=== PATIENT | female | born 1955 | race Caucasian/White ===

== ENCOUNTER 2016-08-09 11:35 | Emergency (ER) | payer OTHER ==
[2016-08-09 11:47] VITALS: BP 116/76; PULSE 87; TEMP 98; BMI 28.3
[2016-08-09] MEDS ORDERED: ALBUTEROL SO4 2.5/IPRATROPIUM 0.5 INH SOL 3 ML VIAL.NEB. NEB ONE ×4 (12:02→13:02)
--- NOTE | 2016-08-09 12:08 | PDOC ---
History of Present Illness - General Chief Complaint: Asthma Stated Complaint: SOB (ASTHMA) Time Seen by Provider: 08/09/16 11:54 History Source: Patient Exam Limitations: No Limitations - History of Present Illness Initial Comments: 08/09/16 12:03 61 yr female with cough and ear pain for one week. Pt has cough and wheezing for 2 days. Pt denies fever or chest pain. pt has SOB at night trying to sleep. Pt speaking clear sentences no history of intubations. Possible Cause: Yes: occasional episodes Past History - Travel Traveled outside of the country in the last 30 days: No Close contact w/someone who was outside of country & ill: No - Past Medical History Allergies/Adverse Reactions: Allergies Allergy/AdvReac Type Severity Reaction Status Date / Time No Known Allergies Allergy Verified 08/09/16 11:42 Home Medications: Ambulatory Orders Albuterol Sulfate [Proair Respiclick] 90 mcg IH ASDIR 02/13/16 Budesonide/Formeterol Fumarate [SYMBICORT 160/4.5mcg -] 1 inh IH ASDIR 02/13/16 Famotidine [Pepcid -] 40 mg PO DAILY #30 tablet 02/13/16 Gemfibrozil 600 mg PO BID 02/13/16 Montelukast Na [Singulair -] 10 mg PO HS 02/13/16 Multivitamins [Tab-A-Vit -] 1 tab PO DAILY 02/13/16 Albuterol 0.083% Nebulizer Maryellne [Ventolin 0.083% Nebulizer Soln -] 1 neb NEB Q4H PRN #60 vial 08/09/16 Azithromycin [Zithromax 250mg Tablets -] 250 mg PO UTDICT #6 tab 08/09/16 Prednisone [Deltasone -] 40 mg PO DAILY #10 tablet 08/09/16 Asthma: Yes Diabetes: Yes Hypercholesterolemia: Yes Liver Disease: Yes (?) - Psycho/Social/Smoking Cessation Hx Anxiety: No Suicidal Ideation: No Smoking Status: No Smoking History: Never smoked Number of Cigarettes Smoked Daily: 2 Information on smoking cessation initiated: Yes Hx Alcohol Use: No Drug/Substance Use Hx: No Substance Use Type: None Respiratory Specific PMHX - Complaint Specific PMHX Angina: No Bronchitis: Yes Pneumonia: Yes Pulmonary Embolus: No TB (Tuberculosis): No Review of Systems - Review of Systems Able to Perform ROS?: Yes Is the patient limited Citizen [place] proficient: No Constitutional: No: Symptoms Reported HEENTM: Yes: Eye Pain Respiratory: Yes: Cough, Shortness of Breath, Wheezing, Productive cough *Physical Exam - Vital Signs Last Vital Signs Temp Pulse Resp BP Pulse Ox 98.0 F 87 24 116/76 98 08/09/16 11:42 08/09/16 11:42 08/09/16 11:42 08/09/16 11:42 08/09/16 11:42 - Physical Exam General Appearance: Yes: Nourished, Appropriately Dressed HEENT: positive: EOMI, BROOKE, Normal ENT Inspection, TMs Normal, Pharynx Normal Neck: positive: Supple. negative: Tender Respiratory/Chest: positive: Lungs Clear, Normal Breath Sounds, Wheezing (mild exp ) Cardiovascular: positive: Regular Rhythm, Regular Rate Gastrointestinal/Abdominal: positive: Normal Bowel Sounds, Soft. negative: Tender Musculoskeletal: positive: Normal Inspection Extremity: positive: Normal Capillary Refill, Normal Inspection, Normal Range of Motion Integumentary: positive: Normal Color, Dry, Warm Neurologic: positive: Fully Oriented, Alert, Normal Mood/Affect, Normal Response , Motor Strength 5/5 Progress Note - Progress Note Progress Note: pt feels better after nebulizers no wheezing on discharge will dc home with strict follow up inst. pt given verbal dc inst all questions asked and answered. Medical Decision Making - Medical Decision Making 08/09/16 12:07 cc: cough, wheezing, nasal congestion ear pain non toxic speaking full sentences no acute distress will give duoneb *DC/Admit/Observation/Transfer Diagnosis at time of Disposition: Asthmatic bronchitis Qualifiers: Asthma severity: mild intermittent Asthma complication type: with acute exacerbation Qualified Code(s): J45.21 - Mild intermittent asthma with (acute) exacerbation - Discharge Dispostion Disposition: HOME Condition at time of disposition: Improved - Prescriptions Prescriptions: Prednisone [Deltasone -] 40 mg PO DAILY #10 tablet Albuterol 0.083% Nebulizer Maryellen [Ventolin 0.083% Nebulizer Soln -] 1 neb NEB Q4H PRN #60 vial PRN Reason: Asthma Azithromycin [Zithromax 250mg Tablets -] 250 mg PO UTDICT #6 tab - Referrals Referrals: Bonnie Rodríguez MD [Primary Care Provider] -
[2016-08-09] MEDS ORDERED: predniSONE 20 MG TABLET (UD) PO ONE (12:11)
[2016-08-09] MEDS ORDERED: predniSONE 20 MG TABLET (UD) ONE (12:24)
== END 2016-08-09 13:18 | disposition home or self-care (01) ==
LOC: JER 11:35 → JERFT 11:35
PROC: 3E0F7GC Introduction of Other Therapeutic Substance into Respiratory Tract, Via Natural or Artificial Opening (ICD-10-PCS; principal; 2016-08-09)
PROC: 3E0F7GC Introduction of Other Therapeutic Substance into Respiratory Tract, Via Natural or Artificial Opening (ICD-10-PCS; 2016-08-09)
DX: J45.21 Mild intermittent asthma with (acute) exacerbation (principal); E11.9 Type 2 diabetes mellitus without complications; E78.00 Pure hypercholesterolemia, unspecified
CPT/HCPCS: 94640; 99281-25

== ENCOUNTER 2018-04-24 10:29 | Emergency (ER) | payer OTHER ==
[2018-04-24 10:52] VITALS: BMI 27.3
--- NOTE | 2018-04-24 11:25 | PDOC ---
History of Present Illness - History of Present Illness Initial Comments: 04/24/18 11:17 63 year old with history of HTN, asthma and DM who presents with 8/10 R sided abdominal pain slightly radiating to the low back. The pain woke her up from sleep this AM. She notes that she has had diarrhea since yesterday. She reports that this pain worsens at night, is intermittent and denies any association of the pain to eating. She states the pain occurred last week and went away on its own. She denies taking anything for pain. She denies fever, recent travel, recent illness. Denies any prior abdominal surgeries. <Luli Ariza - Last Filed: 04/24/18 15:25> <Morris Resendiz - Last Filed: 04/24/18 16:45> - General Chief Complaint: Pain Stated Complaint: ABDOMINAL PAIN/ RUQ Time Seen by Provider: 04/24/18 11:06 Past History - Past Medical History Asthma: Yes COPD: No Diabetes: Yes Hypercholesterolemia: Yes Liver Disease: Yes (?) - Suicide/Smoking/Psychosocial Hx Smoking Status: No Smoking History: Never smoked Number of Cigarettes Smoked Daily: 2 Information on smoking cessation initiated: No Hx Alcohol Use: No Drug/Substance Use Hx: No Substance Use Type: None <Luli Ariza - Last Filed: 04/24/18 15:25> <Morris Resendiz - Last Filed: 04/24/18 16:45> - Past Medical History Allergies/Adverse Reactions: Allergies Allergy/AdvReac Type Severity Reaction Status Date / Time No Known Allergies Allergy Verified 04/24/18 10:46 Home Medications: Ambulatory Orders Albuterol Sulfate [Proair Respiclick] 90 mcg IH PRN PRN 02/13/16 Budesonide/Formeterol Fumarate [SYMBICORT 160/4.5mcg -] 1 inh PO BID 08/22/17 *Physical Exam - Vital Signs Last Vital Signs Temp Pulse Resp BP Pulse Ox 98.6 F 81 18 126/77 100 04/24/18 10:48 04/24/18 10:48 04/24/18 10:48 04/24/18 10:48 04/24/18 10:48 - Physical Exam Comments: 04/24/18 11:49 + RUQ tenderness to palpation, no rebound or guarding, negative Perera's sign No CVA tenderness <Luil Ariza - Last Filed: 04/24/18 15:25> - Vital Signs Last Vital Signs Temp Pulse Resp BP Pulse Ox 98.5 F 74 20 117/75 99 04/24/18 16:25 04/24/18 16:25 04/24/18 16:25 04/24/18 16:25 04/24/18 16:25 <Morris Resendiz - Last Filed: 04/24/18 16:45> ED Treatment Course - LABORATORY CBC & Chemistry Diagram: 04/24/18 11:21 04/24/18 11:35 <Luli Ariza - Last Filed: 04/24/18 15:25> - LABORATORY CBC & Chemistry Diagram: 04/24/18 11:21 04/24/18 11:35 - ADDITIONAL ORDERS Additional order review: Laboratory Results 04/24/18 04/24/18 11:35 11:31 Sodium 141 Potassium 4.2 Chloride 104 Carbon Dioxide 27 Anion Gap 9 BUN 17 Creatinine 0.5 L Creat Clearance w eGFR > 60 Random Glucose 85 Calcium 9.4 Total Bilirubin 0.4 AST 17 ALT 25 Alkaline Phosphatase 70 Total Protein 7.6 Albumin 4.7 Lipase 104 Urine Color Colorless Urine Appearance Clear Urine pH 7.0 Ur Specific [place] 1.002 L Urine Protein Negative Urine Glucose (UA) Negative Urine Ketones Negative Urine Blood Negative Urine Nitrite Negative Urine Bilirubin Negative Urine Urobilinogen Negative Ur Leukocyte Esterase Negative 04/24/18 11:21 RBC 4.77 MCV 85.8 MCHC 33.5 RDW 13.1 MPV 8.8 D Neutrophils % 65.6 Lymphocytes % 28.2 Monocytes % 4.8 Eosinophils % 1.1 Basophils % 0.3 - RADIOLOGY Radiology Studies Ordered: Category Date Time Status ABDOMEN US -LIMITED [US] Stat Ultrasound 04/24/18 13:06 Completed - Medications Given in the ED: ED Medications Discontinued Medications Generic Name Dose Route Start Last Admin Trade Name Freq PRN Reason Stop Dose Admin Ketorolac Tromethamine 30 mg 04/24/18 11:45 04/24/18 11:50 Toradol Injection - IVPUSH 04/24/18 11:46 30 mg ONCE ONE Administration <Morris Resendiz - Last Filed: 04/24/18 16:45> Medical Decision Making - Medical Decision Making 04/24/18 11:26 63 year old with history of HTN, asthma and DM who presents with 8/10 R sided abdominal pain slightly radiating to the low back. The pain woke her up from sleep this AM. She notes that she has had diarrhea since yesterday. She reports that this pain worsens at night, is intermittent and denies any association of the pain to eating. She states the pain occurred last week and went away on its own. She denies taking anything for pain. She denies fever, recent travel, recent illness. Denies any prior abdominal surgeries. DDX including but not limited to: cholelithiasis vs nephrolithiasis vs UTI vs pyelonephritis vs gastroenteritis W/U: - cbc, cmp, lipase - ua, ucx - Abd US TX: - 1L NS - Toradol ED Course: Patient reports feeling hungry at bedside. 04/24/18 15:09 Patient reassessed. Reports feeling hungry. RUQ tenderness to palpation. Improved from initial assessment. 04/24/18 15:18 CBC, CMP, UA: unremarkable. 04/24/18 15:25 <Luli Ariza - Last Filed: 04/24/18 15:25> *DC/Admit/Observation/Transfer <Luli Ariza - Last Filed: 04/24/18 15:25> - Discharge Dispostion Decision to Admit order: No <Morris Resendiz - Last Filed: 04/24/18 16:45> Diagnosis at time of Disposition: Abdominal pain Qualifiers: Abdominal location: right upper quadrant Qualified Code(s): R10.11 - Right upper quadrant pain - Discharge Dispostion Disposition: HOME Condition at time of disposition: Improved - Referrals Referrals: Bonnie Rodríguez MD [Primary Care Provider] - - Patient Instructions Printed Discharge Instructions: DI for Abdominal Pain-Adult Additional Instructions: Return to the emergency department immediately with ANY new, persistent or worsening symptoms including worsening abdominal pain, fevers, inability to tolerate oral intake, chest pain, shortness of breath or any other concerns. Stay well hydrated. You MUST call and follow up with your doctor in 3-4 days. Your emergency department visit is not complete without a followup with your doctor for reevaluation. Please make sure your doctor reviews the results of your emergency evaluation. - Post Discharge Activity
[2018-04-24] MEDS ORDERED: SODIUM CHLORIDE 1,000 ML IV SCH (11:30)
--- NOTE | 2018-04-24 11:43 | PDOC ---
Attending Attestation - Resident Resident Name: ToLuli - ED Attending Attestation I have performed the following: I have examined & evaluated the patient, The case was reviewed & discussed with the resident, I agree w/resident's findings & plan, Exceptions are as noted - HPI HPI: 04/24/18 11:41 63y F htn, asthma, dm, presents with 8/10 R sieded abdo pain. had similar pain last week that resolved. She notes that the pain is intermittent in the right upper quadrant usually worse at night resolves with ibuprofen Denies any fever, chills, nausea, vomiting, does endorse some mild diarrhea, denies associated chest pain, shortness of breath, back pain, dysuria, hematuria. GENERAL: The patient is awake, alert, and fully oriented, Nontoxic - in no acute distress. HEAD: Normocephalic, atraumatic. EYES: extraocular movements intact, sclera anicteric, conjunctiva clear. ENT: Normal voice, Moist mucous membranes. NECK: Normal range of motion, supple LUNGS: Breath sounds equal, clear to auscultation bilaterally. No wheezes, no rhonchi, no rales. HEART: Regular rate and rhythm, normal S1 and S2 without murmur, rub or gallop. ABDOMEN: Soft, nontender, No guarding, no rebound. No CVA tenderness EXTREMITIES: Normal range of motion, no edema. NEUROLOGICAL: No facial assymetry, Normal speech, PSYCH: Normal mood, normal affect. SKIN: Warm, Dry, normal turgor, Differential for the patient's symptoms includes gallstones, kidney stones, gastritis The patient was given Toradol, blood work was obtained - Physicial Exam PE: 04/24/18 16:45 see above - Medical Decision Making 04/24/18 13:08 Labs unremarkable, ua no hematuria will obtain RUQ US pt currently asymptmotic 04/24/18 16:45 The patient is currently asymptomatic, abdomen was reassessed it is soft nontender the patient's ultrasound was unremarkable beside a fatty liver. I will discharge patient to follow up with PMD return precautions were discussed I discussed the physical exam findings, ancillary test results and final diagnoses with the patient. I answered all of the patient's questions. The patient was satisfied with the care received and felt comfortable with the discharge plan and treatment plan. The patient will call their primary care physician within 24 hours to arrange follow-up and will return to the Emergency Department with any new, persistent or worsening symptoms.
[2018-04-24] MEDS ORDERED: KETOROLAC TROMETHAMINE 30 MG/1 ML VIAL IVPUSH ONE (11:45)
[2018-04-24] MEDS ORDERED: KETOROLAC TROMETHAMINE 30 MG/1 ML VIAL ONE (11:50)
[2018-04-24 11:52] LABS: URINE APPEARANCE CLEAR; URINE BILIRUBIN NEGATIVE (<2.0 mg/dL); URINE COLOR COLORLESS; URINE GLUCOSE (UA) NEGATIVE (NEGATIVE); URINE KETONE NEGATIVE (NEGATIVE); URINE LEUK ESTERASE NEGATIVE (NEGATIVE); URINE NITRITE NEGATIVE (NEGATIVE); URINE PROTEIN NEGATIVE (NEGATIVE); URINE UROBILINOGEN NEGATIVE mg/dL (0.2-1.0)
[2018-04-24 12:29] LABS: BASO % 0.3 % (0-2.0); EOS % 1.1 % (0-4.5); HEMATOCRIT 40.9 % (32.4-45.2); HEMOGLOBIN 13.7 GM/dL (10.7-15.3); LYMPH % 28.2 % (8-40); MCH 28.7 pg (25.7-33.7); MCHC 33.5 g/dl (32.0-36.0); MEAN CELL VOLUME 85.8 fl (80-96); MEAN PLT VOLUME 8.8 fl (7.5-11.1); MONO % 4.8 % (3.8-10.2); NEUT % 65.6 % (42.8-82.8); PLATELET COUNT 308 K/MM3 (134-434); RBC 4.77 M/mm3 (3.60-5.2); RDW 13.1 % (11.6-15.6); WHITE BLOOD COUNT 10.2 K/mm3 (4.0-10.0)
[2018-04-24 12:29] LABS: ALBUMIN 4.7 g/dl (3.4-5.0); ALK PHOS 70 U/L (45-117); ANION GAP 9 MMOL/L (8-16); BILIRUBIN,TOTAL 0.4 mg/dL (0.2-1); BLOOD UREA NITROGEN 17 mg/dL (7-18); CALCIUM 9.4 mg/dL (8.5-10.1); CHLORIDE 104 mmol/L (98-107); CO2 27 mmol/L (21-32); CREATININE 0.5 mg/dL (0.55-1.3); GLUCOSE,RANDOM 85 mg/dL (74-106); LIPASE 104 U/L (73-393); POTASSIUM 4.2 mmol/L (3.5-5.1); SGOT/AST 17 U/L (15-37); SGPT/ALT 25 U/L (13-61); SODIUM 141 mmol/L (136-145); TOT PROT 7.6 g/dl (6.4-8.2)
--- NOTE | 2018-04-24 14:51 | EKG ---
Test Reason : Blood Pressure : / mmHG Vent. Rate : 071 BPM Atrial Rate : 071 BPM P-R Int : 154 ms QRS Dur : 084 ms QT Int : 432 ms P-R-T Axes : 033 014 053 degrees QTc Int : 469 ms NORMAL SINUS RHYTHM NORMAL ECG WHEN COMPARED WITH ECG OF 13-FEB-2016 15:21, NO SIGNIFICANT CHANGE WAS FOUND Confirmed by MD Guzman Edward ([id number]) on 04/24/2018 2:50:39 PM Referred By: Confirmed By:Clifford Guzman MD
[2018-04-24 16:29] VITALS: BP 117/75; PULSE 74; TEMP 98.5
== END 2018-04-24 17:06 | disposition home or self-care (01) ==
LOC: JER 10:29
PROC: 3E0333Z Introduction of Anti-inflammatory into Peripheral Vein, Percutaneous Approach (ICD-10-PCS; principal; 2018-04-24)
DX: R10.11 Right upper quadrant pain (principal)
CPT/HCPCS: 36415; 76705-TC; 80053; 81003; 83690; 85025; 87086; 93005; 93010; 96374; 99285-25; J7030

== ENCOUNTER 2018-08-04 11:20 | Emergency (ER) | payer OTHER ==
[2018-08-04 11:45] VITALS: BP 112/86; PULSE 72; TEMP 98.4; BMI 25.3
[2018-08-04] MEDS ORDERED: ALBUTEROL SO4 2.5/IPRATROPIUM 0.5 INH SOL 3 ML VIAL.NEB. NEB ONE ×2 (12:49→12:54)
[2018-08-04] MEDS ORDERED: methylPREDNISolone NA SUCC 125 MG/2 ML VIAL IM ONE (12:50)
[2018-08-04] MEDS ORDERED: methylPREDNISolone NA SUCC 125 MG/2 ML VIAL ONE (13:05)
--- NOTE | 2018-08-04 13:11 | PDOC ---
History of Present Illness - General Chief Complaint: Asthma Stated Complaint: ASTHMA Time Seen by Provider: 08/04/18 12:40 History Source: Patient Exam Limitations: Clinical Condition - History of Present Illness Initial Comments: 08/04/18 13:06 Patient with h/o Asthma present with complaint of 1 week h/o persistent dry cough, nasal congestion, runny nose and intermittent wheezing. Patient report she keeps using home asthma medications but keep getting asthma exacerbations. Patient report tactile fever yesterday but no fever today. Denies any other symptoms. Timing/Duration: other (2 days) Past History - Past Medical History Allergies/Adverse Reactions: Allergies Allergy/AdvReac Type Severity Reaction Status Date / Time No Known Allergies Allergy Verified 08/04/18 11:43 Home Medications: Ambulatory Orders Albuterol Sulfate [Proair Respiclick] 90 mcg IH PRN PRN 02/13/16 Budesonide/Formeterol Fumarate [SYMBICORT 160/4.5mcg -] 1 inh PO BID 08/22/17 Ipratropium [place] 2 spray NS BID PRN #1 spray 08/04/18 Loratadine 10 mg PO DAILY #10 capsule 08/04/18 Methylprednisolone [Medrol Dose Jose] 4 mg PO ASDIR #21 tablet 08/04/18 Asthma: Yes COPD: No Diabetes: Yes Hypercholesterolemia: Yes Liver Disease: Yes (?) - Suicide/Smoking/Psychosocial Hx Smoking Status: No Smoking History: Never smoked Number of Cigarettes Smoked Daily: 2 Hx Alcohol Use: No Drug/Substance Use Hx: No Substance Use Type: None Review of Systems - Review of Systems Able to Perform ROS?: Yes Is the patient limited [place] proficient: No Constitutional: Yes: Chills, Malaise HEENTM: Yes: Symptoms Reported, Nose Congestion. No: See HPI, Eye Pain, Blurred Vision, Tearing, Recent change in vision, Double Vision, Cataracts, Ear Pain, Ocular Prothesis, Ear Discharge, Nose Pain, Tinnitus, Nose Bleeding, Hearing Loss, Throat Pain, Throat Swelling, Mouth Pain, Dental Problems, Difficulty Swallowing, Mouth Swelling, Other Respiratory: Yes: Symptoms reported, See HPI, Cough, Wheezing (intermittent). No: Orthopnea, Shortness of Breath, SOB with Exertion, SOB at Rest, Stridor, Productive cough, Hemoptysis, Other Cardiac (ROS): No: Symptoms Reported, See HPI, Chest Pain, Edema, Irregular Heart Rate, Lightheadedness, Palpitations, Syncope, Chest Tightness, Other ABD/GI: No: Constipated, Diarrhea, Nausea, Vomiting, Abdominal cramping All Other Systems: Reviewed and Negative *Physical Exam - Vital Signs Last Vital Signs Temp Pulse Resp BP Pulse Ox 98.4 F 72 20 112/86 98 08/04/18 11:43 08/04/18 11:43 08/04/18 11:43 08/04/18 11:43 08/04/18 11:43 - Physical Exam Comments: 08/04/18 14:14 GENERAL: Well developed, well nourished. Awake and alert. No acute distress. HEENT: Normocephalic, atraumatic. PERRLA, EOMI. No conjunctival pallor. Sclera are non-icteric. Moist mucous membranes. Oropharynx is clear. NECK: Supple. Full ROM. CARDIOVASCULAR: Regular rate and rhythm. No murmurs, rubs, or gallops. Distal pulses are 2+ and symmetric. PULMONARY: Mild diffuse wheezing.No evidence of respiratory distress. No rales or rhonchi. ABDOMINAL: Soft. Non-tender. Non-distended. No rebound or guarding. No organomegaly. Normoactive bowel sounds. MUSCULOSKELETAL Normal range of motion at all joints. EXTREMITIES: No cyanosis. No clubbing. SKIN: Warm and dry. Normal capillary refill. No rashes. No jaundice. NEUROLOGICAL: Alert, awake, appropriate. Gait is normal without ataxia. PSYCHIATRIC: Cooperative. Good eye contact. Appropriate mood General Appearance: Yes: Nourished, Appropriately Dressed. No: Apparent Distress Moderate Sedation - Procedure Monitoring Vital Signs: Procedure Monitoring Vital Signs Temperature 98.4 F 08/04/18 11:43 Pulse Rate 72 08/04/18 11:43 Respiratory Rate 20 08/04/18 11:43 Blood Pressure 112/86 08/04/18 11:43 O2 Sat by Pulse Oximetry (%) 98 08/04/18 11:43 ED Treatment Course - RADIOLOGY Radiology Studies Ordered: Category Date Time Status CHEST PA & LAT [RAD] Stat Radiology 08/04/18 12:49 Ordered Medical Decision Making - Medical Decision Making 08/04/18 14:12 Patient with h/o Asthma present with complaint of 1 week h/o persistent dry cough, nasal congestion, runny nose and intermittent wheezing. Patient report she keeps using home asthma medications but keep getting asthma exacerbations. Clinical exam unremarkable except some mild diffuse wheezing, no rhonchi or rales. Patient in no respiratory distress. CXR shows no acute infiltrate. rapid strep negative. Patient stable for outpatient treatment for URI with asthma exacerbations and follow-up with PCP *DC/Admit/Observation/Transfer Diagnosis at time of Disposition: URI (upper respiratory infection) Qualifiers: URI type: unspecified URI Qualified Code(s): J06.9 - Acute upper respiratory infection, unspecified Asthma Qualifiers: Asthma severity: mild Asthma persistence: intermittent Asthma complication type : with acute exacerbation Qualified Code(s): J45.21 - Mild intermittent asthma with (acute) exacerbation - Discharge Dispostion Disposition: HOME Condition at time of disposition: Stable Decision to Admit order: No - Prescriptions Prescriptions: Ipratropium [place] 2 spray NS BID PRN #1 spray PRN Reason: nasal congestion Loratadine 10 mg PO DAILY #10 capsule Methylprednisolone [Medrol Dose Jose] 4 mg PO ASDIR #21 tablet - Referrals Referrals: Bonnie Rodríguez MD [Primary Care Provider] - - Patient Instructions Printed Discharge Instructions: Asthma -- Adult Additional Instructions: Chest x-ray shows no pneumonia. Take medications as prescribed. increase fluid intake. follow-up with PCP - Post Discharge Activity
== END 2018-08-04 14:04 | disposition home or self-care (01) ==
LOC: JERFT 11:20
PROC: 3E0F7GC Introduction of Other Therapeutic Substance into Respiratory Tract, Via Natural or Artificial Opening (ICD-10-PCS; principal; 2018-08-04)
PROC: 3E0233Z Introduction of Anti-inflammatory into Muscle, Percutaneous Approach (ICD-10-PCS; 2018-08-04)
DX: J45.21 Mild intermittent asthma with (acute) exacerbation (principal)
CPT/HCPCS: 71046-TC-FY; 87070; 87880; 94640; 96372; 99281-25

== ENCOUNTER 2019-06-09 09:17 | Emergency (ER) | payer OTHER ==
[2019-06-09 09:24] VITALS: TEMP 98.5; BMI 25.3
[2019-06-09] MEDS ORDERED: ACETAMINOPHEN 1000 MG/100 ML VIAL (NON FORMULARY) IVPB ONE (09:37)
--- NOTE | 2019-06-09 09:38 | PDOC ---
Attending Attestation - Resident Resident Name: Deon Link - HPI HPI: 06/09/19 10:36 pt presents to the ED complaining of the acute onset of facial pain and tooth swelling yesterday. History of poor dentition, does not visit dentist because she has a "phobia". states that pain began yesterday, but facial swelling started his AM. Denies fever, nausea or vomiting, other complaints. - Physicial Exam PE: 06/09/19 10:38 Agree with resident exam. Patient is alert and oriented and in no acute distress. + mild R sided facial swelling. + redness, no warmth or tenderness. + exquisite tenderness at the site of tooth number 12--tooth is missing, but root is still in place. No trismus. - Medical Decision Making 06/09/19 10:41 pt presents to the ED complaining of dental pain and facial swelling. Most likely dental abscess. No facial tenderness or signs of systemic infection to suggest facial abscess. Will treat with penicillin and refer to outpatient dentistry.
[2019-06-09] MEDS ORDERED: PENICILLIN V POTASSIUM 500 MG TABLET PO ONE (09:45)
[2019-06-09] MEDS ORDERED: IBUPROFEN 600 MG TABLET (FP) PO ONE ×2 (09:45→10:05)
--- NOTE | 2019-06-09 09:45 | PDOC ---
History of Present Illness - General Chief Complaint: Wound Stated Complaint: EYE PROBLEM Time Seen by Provider: 06/09/19 09:31 History Source: Patient Exam Limitations: No Limitations - History of Present Illness Initial Comments: 06/09/19 09:43 64F with a PMH of HTN, DM, asthma, who presents to the ER with 1 day of R facial swelling. The patient states that she's had a sore tooth in her R upper mouth for 2 weeks. She states that she ate pizza yesterday and overnight, developed swelling under her R eye. She denies fever, chills, nausea, vomiting, vision changes, or inability to move her R eye. Denies discharge or drainage from tooth. Past History - Past Medical History Allergies/Adverse Reactions: Allergies Allergy/AdvReac Type Severity Reaction Status Date / Time No Known Allergies Allergy Verified 08/04/18 11:43 Home Medications: Ambulatory Orders Albuterol Sulfate [Proair Respiclick] 90 mcg IH PRN PRN 02/13/16 Budesonide/Formeterol Fumarate [SYMBICORT 160/4.5mcg -] 1 inh PO BID 08/22/17 Ipratropium Fabens 2 spray NS BID PRN #1 spray 08/04/18 Penicillin V Potassium [Pen Vee K -] 500 mg PO TID #21 tablet 06/09/19 Asthma: Yes COPD: No Diabetes: Yes Hypercholesterolemia: Yes Liver Disease: Yes (?) - Psycho Social/Smoking Cessation Hx Smoking Status: No Smoking History: Smoker current status UNK Number of Cigarettes Smoked Daily: 2 Hx Alcohol Use: No Drug/Substance Use Hx: No Substance Use Type: None Review of Systems - Review of Systems Able to Perform ROS?: Yes Comments:: 06/09/19 09:54 GENERAL/CONSTITUTIONAL: No fever or chills. No weakness. HEAD, EYES, EARS, NOSE AND THROAT: + for R eye swelling and tooth pain. No change in vision. No ear pain or discharge. No sore throat. CARDIOVASCULAR: No chest pain, palpitations, or lightheadedness. RESPIRATORY: No cough, wheezing, shortness of breath, or hemoptysis. GASTROINTESTINAL: No abdominal pain, nausea, vomiting, diarrhea, or constipation. GENITOURINARY: No dysuria, frequency, hematuria, or change in urination. MUSCULOSKELETAL: No joint or muscle swelling or pain. No neck or back pain. SKIN: No rash or lesions. NEUROLOGIC: No headache, numbness, tingling, focal weakness, loss of consciousness, or change in strength/sensation. Is the patient limited [place] proficient: No *Physical Exam - Vital Signs Last Vital Signs Temp Pulse Resp BP Pulse Ox 98.5 F 76 20 144/70 98 06/09/19 09:23 06/09/19 09:23 06/09/19 09:23 06/09/19 09:23 06/09/19 09:23 - Physical Exam 06/09/19 09:55 GENERAL: Well developed, well nourished. Awake and alert. No acute distress. HEENT: Normocephalic, atraumatic. Hearing grossly normal. Moist mucous membranes. PERRLA, EOMI. No conjunctival pallor. Sclera are non-icteric. Oropharynx is clear. Poor dental hygeine. TTP over R upper gum line. NECK: Supple. Full ROM. No JVD. CARDIOVASCULAR: Regular rate and rhythm. No murmurs, rubs, or gallops. PULMONARY: No evidence of respiratory distress. Lungs clear to auscultation bilaterally. No wheezing, rales or rhonchi. ABDOMINAL: Soft. Non-tender. Non-distended. No rebound or guarding. No organomegaly. Normoactive bowel sounds. GENITOURINARY: No CVA tenderness bilaterally. MUSCULOSKELETAL: Normal range of motion at all joints. No bony deformities or tenderness. EXTREMITIES: No cyanosis. No clubbing. No edema. No calf tenderness or swelling. SKIN: Warm and dry. Normal capillary refill. No rashes. No jaundice. NEUROLOGICAL: Alert, awake, appropriate. Cranial nerves 2-12 grossly intact. Normal speech. Gait is normal without ataxia. PSYCHIATRIC: Cooperative. Good eye contact. Appropriate mood and affect. ED Treatment Course - RADIOLOGY Radiology Studies Ordered: Category Date Time Status FACIAL BONES CT WITH CONTRAST [CT] Stat CT Scan 06/09/19 09:[address] WITH CONTRAST [CT] Stat CT Scan 06/09/19 09:39 Ordered Medical Decision Making - Medical Decision Making 06/09/19 09:56 64F with a PMH of DM, HTN, asthma who presents with 1 day of R eye swelling. Pt w/o B symptoms and exam concerning for dental abscess. Will give pain medication and abx and reassess. 06/09/19 10:52 Pt feels better and will f/u with dental UC. Discharge - Discharge Information Problems reviewed: Yes Clinical Impression/Diagnosis: Tooth pain Condition: Good Disposition: HOME - Admission No - Additional Discharge Information Prescriptions: Penicillin V Potassium [Pen Vee K -] 500 mg PO TID #21 tablet - Follow up/Referral Referrals: Bonnie Rodríguez MD [Primary Care Provider] - - Patient Discharge Instructions Additional Instructions: Please go to [facility] at [address] [place] [address] to get your teeth evaluated. - Post Discharge Activity
[2019-06-09 10:24] VITALS: BP 144/83; PULSE 64
== END 2019-06-09 10:59 | disposition home or self-care (01) ==
LOC: JER 09:17
DX: K08.89 Other specified disorders of teeth and supporting structures (principal); I10 Essential (primary) hypertension; E11.9 Type 2 diabetes mellitus without complications; J45.909 Unspecified asthma, uncomplicated; Z72.0 Tobacco use
CPT/HCPCS: 99281-25

== ENCOUNTER 2020-10-14 10:27 | Emergency (ER) | payer OTHER ==
[2020-10-14 10:36] VITALS: BMI 24.4
[2020-10-14] MEDS ORDERED: SODIUM CHLORIDE 0.9% 500 ML INFUS.BAG IV ONE ×2 (11:29→13:38)
[2020-10-14] MEDS ORDERED: morphine CARPU-JECT 4 MG/1 ML DISP.SYRIN IVPUSH ONE (11:39)
[2020-10-14] MEDS ORDERED: morphine SULFATE 4 MG/ML VIAL ONE (11:41)
[2020-10-14 12:40] LABS: BASO % 0.2 % (0-2.0); EOS % 0.2 % (0-4.5); HEMOGLOBIN 13.4 GM/dL (10.7-15.3); LYMPH % 9.1 % (8-40); MCHC 34.4 g/dl (32.0-36.0); MEAN CELL VOLUME 87.1 fl (80-96); MONO % 4.3 % (3.8-10.2); NEUT % 86.2 % (42.8-82.8); PLATELET COUNT 237 K/MM3 (134-434); RBC 4.47 M/mm3 (3.60-5.2); RDW 13.8 % (11.6-15.6); WHITE BLOOD COUNT 9.4 K/mm3 (4.0-10.0)
[2020-10-14 12:48] LABS: INR 1.03 (0.83-1.09); PROTHROMBIN TIME (PATIENT) 12.7 SEC (9.7-13.0)
[2020-10-14 12:49] LABS: CHLORIDE 101 mmol/L (98-107); SODIUM 135 mmol/L (136-145)
[2020-10-14 12:51] LABS: ACTIVATED PTT 26.6 SECONDS (25.2-36.5)
[2020-10-14 12:52] LABS: ANION GAP 9 MMOL/L (8-16); BLOOD UREA NITROGEN 11.2 mg/dL (7-18); CALCIUM 9.5 mg/dL (8.5-10.1); CO2 26 mmol/L (21-32); GLUCOSE,RANDOM 114 mg/dL (74-106); LIPASE 43 U/L (73-393)
[2020-10-14 12:55] LABS: CREATININE 0.9 mg/dL (0.55-1.3); SGOT/AST 17 U/L (15-37); SGPT/ALT 24 U/L (13-61)
[2020-10-14 12:57] LABS: BILIRUBIN,TOTAL 0.3 mg/dL (0.2-1); TOT PROT 7.4 g/dl (6.4-8.2)
[2020-10-14 12:58] LABS: ALK PHOS 63 U/L (45-117)
[2020-10-14 13:01] LABS: N-TERMINAL BNP 151.3 pg/ml (5-125)
[2020-10-14 13:20] LABS: LACTIC ACID 5.5 mmol/L (0.4-2.0)
[2020-10-14 14:51] LABS: EPI CELLS 2 /uL (0-25.1); HYALINE CASTS 0 /uL (0-3.1); PH,URINE 6.5 (5.0-8.0); URINE APPEARANCE CLEAR; URINE BACTERIA 11 /uL (0-1359); URINE BILIRUBIN NEGATIVE (NEGATIVE); URINE COLOR YELLOW; URINE GLUCOSE (UA) NEGATIVE (NEGATIVE); URINE KETONE NEGATIVE (NEGATIVE); URINE LEUK ESTERASE NEGATIVE (NEGATIVE); URINE NITRITE NEGATIVE (NEGATIVE); URINE PROTEIN NEGATIVE (NEGATIVE); URINE RBC 9 /uL (0-23.9); URINE UROBILINOGEN 0.2 mg/dL (0.2-1.0); URINE WBC 1 /uL (0-25.8)
[2020-10-14] MEDS ORDERED: CIPROFLOXACIN 400 MG/D5W 400 MG/200 ML IVPB IVPB ONE (14:56)
[2020-10-14 17:06] VITALS: BP 131/76; PULSE 85; TEMP 98.1
== END 2020-10-14 18:03 | disposition home or self-care (01) ==
LOC: JER 10:27
PROC: 3E03329 Introduction of Other Anti-infective into Peripheral Vein, Percutaneous Approach (ICD-10-PCS; principal; 2020-10-14)
PROC: 3E03329 Introduction of Other Anti-infective into Peripheral Vein, Percutaneous Approach (ICD-10-PCS; 2020-10-14)
PROC: 3E033NZ Introduction of Analgesics, Hypnotics, Sedatives into Peripheral Vein, Percutaneous Approach (ICD-10-PCS; 2020-10-14)
DX: K51.919 Ulcerative colitis, unspecified with unspecified complications (principal); R10.84 Generalized abdominal pain; R19.7 Diarrhea, unspecified
CPT/HCPCS: 36415; 71045-TC-FY; 74174-TC; 80053; 81003; 82272; 82550; 83605; 83690; 83735; 83880; 84484; 85025; 85610; 85730; 86850; 86900; 86901; 87086; 93005; 93010; 99284-25; C9803; U0003; U0005

== ENCOUNTER 2022-07-16 12:17 | Emergency (ER) | payer OTHER ==
[2022-07-16 12:37] VITALS: BP 138/77; PULSE 87; RESP 18; TEMP 99; BMI 24.7
[2022-07-16] MEDS ORDERED: SODIUM CHLORIDE 0.9% 500 ML INFUS.BAG IV ONE (14:46)
[2022-07-16 16:05] LABS: BASO % 0.5 % (0-2.0); EOS % 1.4 % (0-4.5); HEMATOCRIT 43.8 % (32.4-45.2); HEMOGLOBIN 14.6 GM/dL (10.7-15.3); LYMPH % 31.2 % (8-40); MCH 28.9 pg (25.7-33.7); MCHC 33.3 g/dl (32.0-36.0); MEAN CELL VOLUME 86.7 fl (80-96); MEAN PLT VOLUME 8.7 fl (7.5-11.1); MONO % 6.1 % (3.8-10.2); NEUT % 60.8 % (42.8-82.8); PLATELET COUNT 246 10^3/uL (134-434); RBC 5.05 M/mm3 (3.60-5.2); RDW 13.6 % (11.6-15.6); WHITE BLOOD COUNT 8.9 K/mm3 (4.0-10.0)
[2022-07-16 16:30] LABS: BLOOD UREA NITROGEN 15.6 mg/dL (7-18); CALCIUM 9.8 mg/dL (8.5-10.1)
[2022-07-16 16:31] LABS: ALBUMIN 4.2 g/dl (3.4-5.0)
[2022-07-16 16:33] LABS: CREATININE 0.5 mg/dL (0.55-1.3)
[2022-07-16 16:35] LABS: BILIRUBIN,TOTAL 0.4 mg/dL (0.2-1); TOT PROT 7.5 g/dl (6.4-8.2)
== END 2022-07-16 19:42 | disposition home or self-care (01) ==
LOC: JER 12:17
DX: K52.9 Noninfective gastroenteritis and colitis, unspecified (principal)
CPT/HCPCS: 0241U-QW; 36415; 74177-TC; 80053; 82272; 83690; 85025; 99285-25; Q9967

== ENCOUNTER 2022-12-26 12:37 | Emergency (ER) | payer OTHER ==
[2022-12-26 12:42] VITALS: BP 114/80; PULSE 94; RESP 16; TEMP 98.6; BMI 26.0
[2022-12-26] MEDS ORDERED: ALBUTEROL SO4 2.5/IPRATROPIUM 0.5 INH SOL 3 ML VIAL.NEB. NEB ONE ×2 (13:18→13:31)
[2022-12-26] MEDS ORDERED: predniSONE 20 MG TABLET (UD) PO ONE (13:56)
[2022-12-26] MEDS ORDERED: ALBUTEROL SO4 0.042% IH SOL 1.25 MG/3 ML VIAL.NEB NEB ONE ×2 (13:56→14:14)
[2022-12-26] MEDS ORDERED: ALBUTEROL SO4 0.083% IH SOL 2.5 MG/3 ML VIAL.NEB. NEB ONE (14:09)
[2022-12-26] MEDS ORDERED: predniSONE 20 MG TABLET (UD) ONE (14:09)
== END 2022-12-26 14:55 | disposition home or self-care (01) ==
LOC: JER 12:37
PROC: 3E0F7GC Introduction of Other Therapeutic Substance into Respiratory Tract, Via Natural or Artificial Opening (ICD-10-PCS; principal; 2022-12-26)
PROC: 3E0F7GC Introduction of Other Therapeutic Substance into Respiratory Tract, Via Natural or Artificial Opening (ICD-10-PCS; 2022-12-26)
DX: J45.21 Mild intermittent asthma with (acute) exacerbation (principal)
CPT/HCPCS: 0241U-QW; 71046-TC-FY; 93005; 93010; 94640; 99285-25

== ENCOUNTER 2023-11-17 12:12 | Emergency (ER) | payer OTHER ==
[2023-11-17 12:18] VITALS: RESP 19; BMI 25.9
[2023-11-17] MEDS ORDERED: ALBUTEROL SO4 2.5/IPRATROPIUM 0.5 INH SOL 3 ML VIAL.NEB. NEB ONE (13:51)
[2023-11-17] MEDS ORDERED: ACETAMINOPHEN INJECTION 100 ML IVPB ONE (13:52)
[2023-11-17 13:54] LABS: VENOUS BASE EXCESS 3.5 mmol/L (-2-2); VENOUS PCO2 41.9 mmHg (38-52); VENOUS PH 7.443 (7.310-7.410)
[2023-11-17 13:56] LABS: BASO % 0.4 % (0-2.0); EOS % 0.7 % (0-4.5); HEMATOCRIT 38.8 % (32.4-45.2); HEMOGLOBIN 13.3 GM/dL (10.7-15.3); MCH 29.5 pg (25.7-33.7); MCHC 34.4 g/dl (32.0-36.0); MEAN CELL VOLUME 85.6 fl (80-96); MEAN PLT VOLUME 7.5 fl (7.5-11.1); MONO % 8.1 % (3.8-10.2); NEUT % 69.8 % (42.8-82.8); PLATELET COUNT 249 10^3/uL (134-434); RBC 4.53 M/mm3 (3.60-5.2); RDW 13.3 % (11.6-15.6); WHITE BLOOD COUNT 8.5 K/mm3 (4.0-10.0)
[2023-11-17] MEDS: ACETAMINOPHEN 1000 MG/100 ML BAG IVPB ONE (13:58)
[2023-11-17] MEDS: ALBUTEROL SO4 2.5/IPRATROPIUM 0.5 INH SOL 3 ML VIAL.NEB. NEB ONE (13:58)
[2023-11-17] MEDS: LACTATED RINGERS SOLUTION 1000 ML INFUS.BAG IV ONE (13:58)
[2023-11-17 14:20] LABS: POTASSIUM 3.7 mmol/L (3.5-5.1)
[2023-11-17 14:22] LABS: ALBUMIN 3.8 g/dl (3.4-5.0); CALCIUM 9.6 mg/dL (8.5-10.1)
[2023-11-17 14:23] LABS: BLOOD UREA NITROGEN 9.7 mg/dL (7-18); MAGNESIUM 2.2 mg/dL (1.8-2.4)
[2023-11-17 14:26] LABS: CREATININE 0.6 mg/dL (0.55-1.3)
[2023-11-17 14:28] LABS: BILIRUBIN,TOTAL 0.3 mg/dL (0.2-1)
[2023-11-17] MEDS ORDERED: predniSONE 20 MG TABLET (UD) ONE ×2 (15:52→15:55)
[2023-11-17] MEDS ORDERED: AZITHROMYCIN 500 MG TABLET ONE (15:55)
[2023-11-17] MEDS: AZITHROMYCIN 250 MG TABLET PO ONE (16:14)
[2023-11-17] MEDS: predniSONE 20 MG TABLET (UD) PO ONE (16:14)
[2023-11-17 16:24] VITALS: BP 140/78; PULSE 72; TEMP 98.6
== END 2023-11-17 16:24 | disposition home or self-care (01) ==
LOC: JER 12:12
PROC: 3E033NZ Introduction of Analgesics, Hypnotics, Sedatives into Peripheral Vein, Percutaneous Approach (ICD-10-PCS; principal; 2023-11-17)
PROC: 3E0F7GC Introduction of Other Therapeutic Substance into Respiratory Tract, Via Natural or Artificial Opening (ICD-10-PCS; 2023-11-17)
DX: J45.901 Unspecified asthma with (acute) exacerbation (principal); J06.9 Acute upper respiratory infection, unspecified; R06.02 Shortness of breath; R50.9 Fever, unspecified; R05.9 Cough, unspecified; Z20.822 Contact with and (suspected) exposure to COVID-19
CPT/HCPCS: 0241U-QW; 36415; 71046-TC-FY; 80053; 82803; 83735; 85025; 93005; 93010; 94640; 96374; 99285-25; J0131